=== PATIENT | male | born 1970 | race Caucasian/White ===

== ENCOUNTER 2019-02-26 09:31 | Emergency (ER) | payer OTHER ==
[~2019-02-26] VITALS: Ht 165.1 cm; Wt 73.0 kg
[2019-02-26 09:37] VITALS: Ht 165.1 cm; Wt 73.0 kg
[2019-02-26 10:30] VITALS: BP 142/85
== END 2019-02-26 10:30 | disposition home or self-care (01) ==
LOC: ED 09:31
DX: H60.92 Unspecified otitis externa, left ear (principal); F17.210 Nicotine dependence, cigarettes, uncomplicated; Z71.6 Tobacco abuse counseling
CPT/HCPCS: 99406

== ENCOUNTER 2019-12-24 12:08 | Emergency (ER) | payer OTHER, BC ==
[~2019-12-24] VITALS: Ht 165.1 cm; Wt 75.7 kg
[2019-12-24 12:17] VITALS: Ht 165.1 cm; Wt 75.7 kg
[2019-12-24 13:31] LABS: BASOPHIL % 0.6 % (0-2); CALCIUM 9.2 mg/dL (8.5-10.1); CARBON DIOXIDE 28.4 mmol/L (21-32); CHLORIDE SERUM 104 mmol/L (98-107); CREATININE SERUM 1.2 mg/dL (0.7-1.3); GFR1 > 60 mL/min; GLUCOSE SERUM 142 mg/dL (74-106); PLATELET COUNT 269 x10^3mcL (130-400); POTASSIUM SERUM 4.5 mmol/L (3.5-5.1); RED CELL DISTRIBUTION WIDTH 13.1 % (11.5-14.5); SODIUM SERUM 140 mmol/L (136-145)
[2019-12-24 13:36] LABS: ALBUMIN 3.8 g/dL (3.4-5.0); ALKALINE PHOSPHATASE 70 U/L (46-116); ALT/SGPT 92 U/L (16-63); AST/SGOT 41 U/L (15-37); BILIRUBIN TOTAL 0.4 mg/dL (0.20-1.00); LIPASE 133 IU/L (73-393); TOTAL PROTEIN, SERUM 7.4 g/dL (6.4-8.2)
[2019-12-24 15:45] VITALS: BP 130/76
== END 2019-12-24 15:45 | disposition home or self-care (01) ==
LOC: ED 12:08
PROVIDERS: Specialist
DX: N20.0 Calculus of kidney (principal); N13.4 Hydroureter
CPT/HCPCS: J1885; J7030

== ENCOUNTER 2020-03-16 15:53 | Emergency (ER) | payer OTHER ==
[~2020-03-16] VITALS: Ht 167.6 cm; Wt 70.8 kg
[2020-03-16 16:05] VITALS: Ht 167.6 cm; Wt 70.8 kg
[2020-03-16 16:59] LABS: BASOPHIL % 0.1 % (0-2); PLATELET COUNT 204 x10^3mcL (130-400); RED CELL DISTRIBUTION WIDTH 13.1 % (11.5-14.5)
[2020-03-16 17:30] LABS: CALCIUM 8.6 mg/dL (8.5-10.1); CARBON DIOXIDE 24.1 mmol/L (21-32); CHLORIDE SERUM 96 mmol/L (98-107); CREATININE SERUM 1.3 mg/dL (0.7-1.3); GFR1 > 60 mL/min; GLUCOSE SERUM 432 mg/dL (74-106); POTASSIUM SERUM 3.8 mmol/L (3.5-5.1); SODIUM SERUM 130 mmol/L (136-145)
[2020-03-16 17:31] LABS: MAGNESIUM 1.9 mg/dL (1.8-2.4)
[2020-03-16 19:24] VITALS: BP 119/76
== END 2020-03-16 19:24 | disposition home or self-care (01) ==
LOC: ED 15:53
PROVIDERS: Emergency Medicine
DX: U07.1 COVID-19 (principal); J12.89 Other viral pneumonia; R42 Dizziness and giddiness; E86.0 Dehydration
CPT/HCPCS: J2405; J7030; J8597; Q0092; U0003-CS

== ENCOUNTER 2020-03-18 11:57 | Emergency (ER) | payer OTHER, SELFPAY ==
[~2020-03-18] VITALS: Ht 165.1 cm; Wt 63.5 kg
[2020-03-18 14:18] VITALS: Ht 165.1 cm; Wt 63.5 kg
[2020-03-18 16:47] VITALS: BP 128/88
== END 2020-03-18 16:47 | disposition home or self-care (01) ==
LOC: ED 11:57
DX: U07.1 COVID-19 (principal); J12.89 Other viral pneumonia
CPT/HCPCS: Q0092